=== PATIENT | female | born 1990 ===

== ENCOUNTER 2021-04-09 10:59 | Emergency (ER) | payer MEDICAID ==
[2021-04-09 11:35] VITALS: BP 159/98
--- NOTE | 2021-04-09 13:14 | Emergency Department Report ---
ED ENT HPI - General Chief complaint: Dental/Oral Stated complaint: TOOTH PAIN Time Seen by Provider: 04/09/21 13:10 Source: patient Mode of arrival: Ambulatory Limitations: No Limitations - History of Present Illness Initial comments: Patient is a 31-year-old female presents emergency room complaints of right upper tooth pain that began last night. Patient states that she has not seen a dentist in several years. She states that she could not get a dental appointment until next Monday04/14/21. She denies any fever, nausea, vomiting, diarrhea, difficulty swallowing, difficulty breathing. No past medical history. No allergies to medicines. - Related Data Previous Rx's Medication Instructions Recorded Last Taken Type Chlorhexidine Mouthwash [Peridex] 15 ml MM BID #1 bottle 04/09/21 Unknown Rx Naproxen [EC-Naprosyn] 500 mg PO BID PRN #20 tablet. 04/09/21 Unknown Rx Penicillin Vk [Veetids TAB] 500 mg PO QID 7 Days #56 tablet 04/09/21 Unknown Rx Allergies Allergy/AdvReac Type Severity Reaction Status Date / Time No Known Allergies Allergy Unverified 04/09/21 11:32 ED Dental HPI - General Chief complaint: Dental/Oral Stated complaint: TOOTH PAIN Time Seen by Provider: 04/09/21 13:10 Source: patient Mode of arrival: Ambulatory Limitations: No Limitations - Related Data Previous Rx's Medication Instructions Recorded Last Taken Type Chlorhexidine Mouthwash [Peridex] 15 ml MM BID #1 bottle 04/09/21 Unknown Rx Naproxen [EC-Naprosyn] 500 mg PO BID PRN #20 tablet. 04/09/21 Unknown Rx Penicillin Vk [Veetids TAB] 500 mg PO QID 7 Days #56 tablet 04/09/21 Unknown Rx Allergies Allergy/AdvReac Type Severity Reaction Status Date / Time No Known Allergies Allergy Unverified 04/09/21 11:32 ED Review of Systems ROS: Stated complaint: TOOTH PAIN Other details as noted in HPI Comment: All other systems reviewed and negative ED Past Medical Hx - Past Medical History Previous Medical History?: No - Surgical History Past Surgical History?: No - Medications Home Medications: Home Medications Medication Instructions Recorded Confirmed Last Taken Type Chlorhexidine Mouthwash [Peridex] 15 ml MM BID #1 bottle 04/09/21 Unknown Rx Naproxen [EC-Naprosyn] 500 mg PO BID PRN #20 tablet. 04/09/21 Unknown Rx Penicillin Vk [Veetids TAB] 500 mg PO QID 7 Days #56 tablet 04/09/21 Unknown Rx ED Physical Exam - General Limitations: No Limitations General appearance: alert, in no apparent distress - Head Head exam: Present: atraumatic, normocephalic - Eye Eye exam: Present: normal appearance - ENT ENT exam: Present: mucous membranes moist, other (poor dentition, several missing/cracked teeth with dental decay, pt has ttp with palpation of the right upper molar, no facial edema, no obvious gum edema, uvula is midline, no uvula edema or deviation, no trismus, no tongue elevation, no muffled voice, no submandibular edema) - Respiratory Respiratory exam: Absent: respiratory distress, accessory muscle use - Neurological Exam Neurological exam: Present: alert, oriented X3 - Psychiatric Psychiatric exam: Present: normal affect, normal mood - Skin Skin exam: Present: warm, dry, intact ED Course Vital Signs 04/09/21 11:33 Temperature 98.4 F Pulse Rate 71 Respiratory 20 Rate Blood Pressure 159/98 [Right] O2 Sat by Pulse 99 Oximetry ED Medical Decision Making - Medical Decision Making Patient is a 31-year-old female presents emergency room complaints of right upper tooth pain that began last night. Patient states that she has not seen a dentist in several years. She states that she could not get a dental appointment until next Monday04/14/21. She denies any fever, nausea, vomiting, diarrhea, difficulty swallowing, difficulty breathing. No past medical history. No allergies to medicines. Vitals are stable. On exam:poor dentition, several missing/cracked teeth with dental decay, pt has ttp with palpation of the right upper molar, no facial edema, no obvious gum edema, uvula is midline, no uvula edema or deviation, no trismus, no tongue elevation, no muffled voice, no submandibular edema. No clinical signs of significant dental abscess, facial cellulitis, facial abscess or Jonathan's at this time. Patient given prescription for medication. Advised patient Please take medication as prescribed. Follow-up with the dentist. It is very important that you follow- up. Return to emergency room for new or worsening symptoms. Critical care attestation.: If time is entered above; I have spent that time in minutes in the direct care of this critically ill patient, excluding procedure time. ED Disposition Clinical Impression: Dentalgia, Dental caries, Poor dentition Disposition: TO HOME OR SELFCARE Is pt being admited?: No Does the pt Need Aspirin: No Condition: Stable Additional Instructions: Please take medication as prescribed. Follow-up with the dentist. It is very important that you follow-up. Return to emergency room for new or worsening symptoms. Prescriptions: Naproxen [EC-Naprosyn] 500 mg PO BID PRN #20 tablet. PRN Reason: pain Chlorhexidine Mouthwash [Peridex] 15 ml MM BID #1 bottle Penicillin Vk [Veetids TAB] 500 mg PO QID 7 Days #56 tablet Referrals: a, dentist [Other] - 2-3 Days Time of Disposition: 13:13 Print Language: [place]
== END 2021-04-09 13:55 | disposition home or self-care (01) ==
LOC: ED 10:59
DX: K02.9 Dental caries, unspecified (principal); K08.89 Other specified disorders of teeth and supporting structures; K08.9 Disorder of teeth and supporting structures, unspecified; Z79.899 Other long term (current) drug therapy
CPT/HCPCS: 99281